=== PATIENT | female | born 1980 | race Caucasian/White ===

== ENCOUNTER → 2016-06-27 | Outpatient (CLI) | payer OTHER ==
[~2016-06-27] MED LIST: AMOXICILLIN PO; BACTRIM DS TABL1 TA1 PO; BACTRIM DS TABL1 TAB PO; CIPRO PO; CLARITIN10 MG PO; COMPAZINE10 MG PO; COMPAZINE10 MG RC; DARVOCET-N 1001 TAB PO; LORTAB 5/500 TA1 TA1 PO; MOBIC PO; NO MEDICATIONS; NORCO 5/325 TAB1 TAB PO; PENTASA PO; PHENERGAN SUPP25 MG PR; PHENERGAN25 MG PO; PREDNISONE PO; PRENATAL MULTIV1 TA1; PRENATAL MULTIV1 TA1 PO; PRENATAL1 TA1 PO; PREVACID PO; PYRIDIUM PO; PYRIDIUM100 MG PO; REGLAN PO; REGLAN10 MG PO; TYLENOL #3 PO; TYLOX 5/500 CAP1 CAP PO; ULTRAM PO; VICODIN 5/1 TAB 5/50 PO; VICODIN 5/500 T1 TAB PO; ZOFRAN PO; ZOFRAN8 MG PO
--- NOTE | ~2016-06-27 | CR127 ---
[facility]. [facility] A Service of [facility] & [facility] RADIOLOGY TEXT RESULTS PATIENT: KAROL MCINTYRE LOCATION: [facility] : 84 UNIT #: [id number] AGE: [address]: Carlos Hay MD SEX: F ORDER DR: [id number] [address] [address] [id number] O MR#: [id number] Acc #: [id number] NAME: KAROL MCINTYRE : 1980 SEX: F STUDY DATE/TIME: 06/27/2016 16:20 UNIT: [facility] ROOM: STUDY DESCRIPTION: CR Foot Complete Min 3 View Rt Attending Physician: Carlos Hay M.D. Referring Physician: Carlos Hay M.D. Ordering Physician: Carlos Hay M.D. Primary Care Physician: Carlos Hay M.D. MEDICAL IMAGING REPORT This report is preliminary unless electronic signature is present. EXAM Right foot, 3 views, 06/27/2016 HISTORY Right foot pain and palpable abnormality right foot, rolled right foot while going down steps yesterday with right foot swelling. FINDINGS 3 views of the right foot demonstrate chronic appearing, incompletely united fractures involving the bases of the second, third and fourth metatarsals with abundant callus formation about each fracture but persistent lucency at the fractures. Clinical correlation is recommended. Abundant sclerosis is seen about each fracture. No acute fracture is seen. The bones are normally mineralized. There is some soft tissue swelling about the right foot. IMPRESSION 1. Chronic appearing, incompletely united fractures involving the bases of the second, third and fourth metatarsals. No acute fracture is seen. 2. Soft tissue swelling about the right foot. Dictated by... Preez Rodgers M.D. THIS IS AN ELECTRONICALLY VERIFIED REPORT Perez Rodgers M.D. at 06/28/2016 2:54 PM JOSEPHINE/ha TD: 06/28/2016 03:06 JOB #: [id number] [facility] A Service of [facility] RADIOLOGY TEXT RESULTS PATIENT: KAROL MCINTYRE LOCATION: [facility] : 84 UNIT #: [id number] AGE: [address]: Carlos Hay MD SEX: F ORDER DR: MEDICAL IMAGING REPORT
== END | disposition home or self-care (01) ==
LOC: SRAD 16:02
DX: M79.671 Pain in right foot (principal); S92.321K Displaced fracture of second metatarsal bone, right foot, subsequent encounter for fracture with nonunion; S92.331K Displaced fracture of third metatarsal bone, right foot, subsequent encounter for fracture with nonunion; S92.341K Displaced fracture of fourth metatarsal bone, right foot, subsequent encounter for fracture with nonunion; M79.89 Other specified soft tissue disorders
CPT/HCPCS: 73630

== ENCOUNTER 2016-06-28 20:09 | Emergency (ER) | payer OTHER | END 2016-06-28 22:02 | disposition home or self-care (01) | LOC: SED 20:09 | DX: S90.31XA Contusion of right foot, initial encounter (principal); K50.90 Crohn's disease, unspecified, without complications; Z90.49 Acquired absence of other specified parts of digestive tract; Z88.6 Allergy status to analgesic agent; Z88.8 Allergy status to other drugs, medicaments and biological substances; W19.XXXA Unspecified fall, initial encounter; Y92.9 Unspecified place or not applicable | CPT/HCPCS: 29515; 99283 ==

== ENCOUNTER → 2016-07-04 | Outpatient (CLI) | payer OTHER ==
--- NOTE | ~2016-07-04 | CT95 ---
[facility] A Service of [facility] & [facility] RADIOLOGY TEXT RESULTS PATIENT: KAROL MCINTYRE LOCATION: [facility] : 84 UNIT #: [id number] AGE: [address]: Jackie Anderson SEX: F ORDER DR: [id number] [facility] [address] [place], [place] [address] [id number] O MR#: [id number] Acc #: [id number] NAME: KAROL MCINTYRE : 1980 SEX: F STUDY DATE/TIME: 07/04/2016 16:51 UNIT: [facility] ROOM: STUDY DESCRIPTION: CT Lower Ext Rt Wo Cont Attending Physician: Jackie Anderson P.A.-C. Referring Physician: Jackie Anderson P.A.-C. Ordering Physician: Jackie Anderosn P.A.-C. Primary Care Physician: Carlos Hay M.D. MEDICAL IMAGING REPORT This report is preliminary unless electronic signature is present EXAM CT right foot without contrast 07/04/2016 HISTORY 35-year-old female with chronic right foot pain and chronic metatarsal fractures for 2 years. Recent fall and twisting of right foot while going down stairs 06/27/2016. COMPARISON STUDIES Comparison right foot 01/04/2014 and 06/27/2016. TECHNIQUE Helical scan performed through the right foot without IV contrast. Multiplanar reformatted images were provided for review. This CT exam was performed with one or more of the following radiation dose reduction techniques: automatic exposure control, adjustment of mA and/or kV according to patient size, and iterative reconstruction. FINDINGS There are chronic-appearing, essentially ununited transverse fractures through the proximal metaphyses of the second, third, and fourth metatarsals. Alignment is near anatomic. No dislocation. The midfoot appears intact and in normal alignment. Subtalar joint and tibiotalar joint are within expected limits. Talar dome intact. No ankle effusion. There is mild subcutaneous soft tissue edema along the dorsum of the foot. No acute fractures are seen. There is motion artifact noted through the proximal metaphysis of the first metatarsal. Flexor and extensor tendons appear grossly unremarkable. IMPRESSION 1. Chronic-appearing, essentially ununited transverse fractures through STS. [facility] A Service of [facility] & [facility] RADIOLOGY TEXT RESULTS PATIENT: KAROL MCINTYRE LOCATION: [facility] : 84 UNIT #: [id number] AGE: [address]: Jackie Anderson SEX: F ORDER DR: the proximal metaphyses of the second, third, and fourth metatarsals. Alignment is near anatomic. No dislocation. 2. No evidence of acute fracture or dislocation. 3. Mild subcutaneous soft tissue edema along the dorsum of the foot. Dictated by... Paulo Mancera M.D. THIS IS AN ELECTRONICALLY VERIFIED REPORT Paulo Mancera M.D. at 07/06/2016 5:59 AM Maria Esther TD: 07/05/2016 17:45 JOB #: [id number] MEDICAL IMAGING REPORT COPY
== END | disposition home or self-care (01) ==
LOC: CCAT 15:36
DX: M84.474K Pathological fracture, right foot, subsequent encounter for fracture with nonunion (principal); M79.671 Pain in right foot; R60.0 Localized edema
CPT/HCPCS: 73700